=== PATIENT | female | born 1950 | race African-American/Black ===

== ENCOUNTER 2016-03-18 07:22 | Emergency (ER) ==
[2016-03-18 07:31] VITALS: BP 121/69
--- NOTE | 2016-03-18 08:18 | PROVIDER DOCUMENTATION ---
HPI-Respiratory General - General Chief Complaint: Cough Stated Complaint: COLD SX/WHEEZING Time Seen by Provider: 03/18/16 08:07 Source: patient Allergies/Adverse Reactions: Patient Allergies Allergy/AdvReac Type Severity Reaction Status Date / Time ibuprofen Allergy Severe VOMITING Verified 12/27/15 23:17 Home Medications: Lansoprazole [Prevacid] 30 mg PO QAM 06/20/13 Nebivolol HCl [Bystolic] 10 mg PO QAM 06/20/13 Potassium Chloride 1 meq PO QAM 06/20/13 - History of Present Illness-Resp Nature of Presenting Problem: 2 days of cough wheeze no f/c no sob no exposures save assisted Quality of Pain: reports: none Onset/Duration: reports: 2 days ago Timing: reports: still present Context: reports: recent URI Cough Quality/Degree: reports: productive cough Episode Frequency: occasional episodes Current Respiratory Medication Therapy: Initiated none Modifying Factors: improves with: sitting upright. worse with: lying down Associated Symptoms: reports: cough, nasal congestion, nasal drainage, sore throat, wheezing. denies: earache, fever/chills, flu-like symptoms, headache, shortness of breath Similar Symptoms Previously?: Yes Recently seen or treated by another doctor?: No Review of Systems - Adult - REVIEW OF SYSTEMS - ADULT Constitutional: reports: no symptoms reported Eyes: denies: discharge, redness Ears, Nose, Mouth & Throat: denies: ear pain, epistaxis, nose pain, hoarseness Cardiovascular: denies: chest pain, edema, palpitations Respiratory: reports: cough, wheezing. denies: hemoptysis, shortness of breath Gastrointestinal: denies: abdominal pain, constipation, diarrhea, nausea, vomiting Genitourinary: denies: discharge, frequency, hesitency, incontinence, urinary retention, urgency Musculoskeletal: denies: bone pain, back pain, muscle aches Integumentary: reports: no symptoms reported Neurological: reports: no symptoms reported Endocrine: reports: no symptoms reported Hematologic/Lymphatic: reports: no symptoms reported Allergic/Immunologic: denies: asthma, hay fever Past History - Adult - PAST MEDICAL HISTORY-ADULT Major Childhood Illnesses: reports: denies history Cardiovascular: reports: HTN Respiratory: reports: COPD Gastrointestinal: reports: GERD Obstetrical/Gynecological: reports: denies history Genitourinary: reports: denies history Musculoskeletal: reports: denies history Neurological: reports: denies history Endocrine/Immune: reports: denies history Other Conditions: reports: denies history - PRIOR SURGERIES/PROCEDURES Surgical/Procedure History: reports: BTL - IMMUNIZATION STATUS Childhood Immunizations: See Nurse Assessment Flu Vaccine: See Nurse Assessment - FAMILY HISTORY Family History: reviewed, not pertinent - SOCIAL HISTORY Smoking: quit greater than 1 year Substance Use: none/never Alcohol Use Frequency: never Physical Exam-General - PHYSICAL EXAM-ADULT Initial Vital Signs Reviewed: Yes - CONSTITUTIONAL General Appearance: appears well, alert - EYES Eyes: PERRL/EOMI - HEAD, EARS, NOSE, MOUTH & THROAT HENMT: normocephalic/atraumatic, TMs normal, pharynx normal - NECK Neck: supple - RESPIRATORY Respiratory: rhonchi, wheezing - CARDIOVASCULAR Cardiovascular: normal peripheral pulses, regular rate, rhythm - GASTROINTESTINAL (ABDOMEN) Abdominal Exam: non tender, soft - LYMPHATIC Lymphatic: no adenopathy - MUSCULOSKELETAL Back Exam: normal inspection Extremity: normal range of motion - SKIN Integumentary: normal color, normal turgor - NEUROLOGIC Neurologic: grossly normal - PSYCHIATRIC Psych/Mental Status: normal mood/affect Progress - XRAY 1 XRAY Study: Chest Impression: Normal Departure - Departure Time of Disposition Order: 08:19 DIAGNOSIS: URI (upper respiratory infection) Qualifiers: URI type: unspecified viral URI Qualified Code(s): J06.9 - Acute upper respiratory infection, unspecified; B97.89 - Other viral agents as the cause of diseases classified elsewhere Disposition: HOME 01 Certified Medical Emergency: Emergent Condition: Stable Additional Instructions: ED Follow Up Instructions: You have been treated by a care provider in the Emergency Department. These instructions are being provided to you so you can have an understanding of how to care for yourself upon discharge. Upon discharge from the Emergency Department, you are responsible for making arrangements for follow-up care by a physician of your choice. Take all prescribed medications as directed. Return to the Emergency Department immediately for any new or worsening symptoms. You may call the Physician Referral phone number at [phone] to obtain a list of Physicians who are taking new patients. Prescriptions: Guaifenesin/Codeine [Robitussin-AC] 10 ml PO Q4H PRN PRN #4 oz PRN Reason: Cough Amoxicillin 875 mg PO BID #20 tablet Referrals: Luis Manuel Hendricks MD [Primary Care Provider] -
--- NOTE | 2016-03-18 11:51 | Diag Imaging Result Document ---
PROCEDURE NAME: CHEST-2 VIEWS - 03/18/2016 PA AND LATERAL RADIOGRAPHS OF THE CHEST: COMPARISON: 06/20/2013. FINDINGS: The lungs are grossly clear. There is no discrete pleural fluid collection or evidence of pneumothorax. The cardiomediastinal silhouette and upper airway are grossly unremarkable. IMPRESSION: No evidence of acute chest pathology.
== END 2016-03-18 08:29 | disposition home or self-care (01) ==
LOC: P.ED 07:22
DX: J06.9 Acute upper respiratory infection, unspecified (principal); R05 Cough; R09.81 Nasal congestion; J02.9 Acute pharyngitis, unspecified; R06.2 Wheezing; I10 Essential (primary) hypertension; J44.9 Chronic obstructive pulmonary disease, unspecified; Z87.891 Personal history of nicotine dependence; Z79.899 Other long term (current) drug therapy
CPT/HCPCS: 71020; 99283